=== PATIENT | female | born 1965 | race Caucasian/White ===

== ENCOUNTER 2017-11-17 05:59 | Day surgery (SDC) | payer OTHER ==
[2017-11-17] MEDS ORDERED: FENTAnyl 50 MCG/ML VIAL (07:33)
[2017-11-17] MEDS ORDERED: MIDAZOLAM 1 MG/ML 2 ML INJ (07:33)
[2017-11-17] MEDS ORDERED: PROPOFOL 20 ML (07:33)
== END 2017-11-17 10:30 | disposition home or self-care (01) ==
LOC: GIL 05:59
DX: Z12.11 Encounter for screening for malignant neoplasm of colon (principal); K29.50 Unspecified chronic gastritis without bleeding; K20.9 Esophagitis, unspecified; K64.4 Residual hemorrhoidal skin tags; K64.8 Other hemorrhoids; K57.90 Diverticulosis of intestine, part unspecified, without perforation or abscess without bleeding; F17.200 Nicotine dependence, unspecified, uncomplicated
CPT/HCPCS: 43239; 88305; 88312

== ENCOUNTER 2018-12-07 05:24 | Inpatient (IN) | payer OTHER ==
[2018-12-07] MEDS ORDERED: CEFAZOLIN 2 GM/50 ML (PMX) 50 ML IVPB (05:30)
[2018-12-07] MEDS: LACTATED RINGER'S 1,000 ML IV ×4 (06:55→22:03)
[2018-12-07] MEDS ORDERED: morphine SULFATE/PF (10 MG/10 ML) INJ (07:44)
[2018-12-07] MEDS ORDERED: MIDAZOLAM 1 MG/ML 2 ML INJ (07:47)
[2018-12-07] MEDS ORDERED: METOCLOPRAMIDE 10 MG INJ IV (08:00)
[2018-12-07] MEDS ORDERED: FENTAnyl 50 MCG/ML VIAL IV ×2 (08:00)
[2018-12-07] MEDS ORDERED: DIPHENHYDRAMINE 50 MG INJ IV (08:00)
[2018-12-07] MEDS ORDERED: HYDROmorphONE 1 MG/5 ML IV SYRINGE IV ×2 (08:00)
[2018-12-07] MEDS ORDERED: MEPERIDINE 25 MG INJ IV (08:00)
[2018-12-07] MEDS ORDERED: ALBUTEROL 0.083% (NEB) 2.5 MG/3 ML AMP HHN (08:00)
[2018-12-07] MEDS: BUPIVACAINE 0.25%/EPI (SDV) 30 ML INJ INJ (08:15)
[2018-12-07] MEDS ORDERED: BUPIVACAINE 0.25%/EPI (SDV) 30 ML INJ (08:26)
[2018-12-07] MEDS ORDERED: SUCCINYLCHOLINE CHLORIDE 100 MG/5 ML SYG IV (09:36)
[2018-12-07] MEDS ORDERED: SUGAMMADEX SODIUM 200 MG/2 ML VIAL IV (09:36)
[2018-12-07] MEDS ORDERED: PROPOFOL 20 ML (09:36)
[2018-12-07] MEDS ORDERED: ROCURONIUM 50 MG INJ (09:36)
[2018-12-07] MEDS ORDERED: LIDOCAINE 100 MG SYRINGE (09:36)
[2018-12-07] MEDS ORDERED: CEFAZOLIN 1 GM INJ (09:36)
[2018-12-07] MEDS ORDERED: ZOLPIDEM 5 MG TAB PO (10:00)
[2018-12-07] MEDS ORDERED: DIPHENHYDRAMINE 50 MG CAP PO (10:00)
[2018-12-07] MEDS ORDERED: ONDANSETRON INJ 6 MG in DEXTROSE 5% 50 ML IVPB (10:00)
[2018-12-07] MEDS ORDERED: HYDROCODONE/APAP (5/325) TAB PO (10:00)
[2018-12-07] MEDS: KETOROLAC 30 MG INJ IV ×2 (10:47→18:36)
[2018-12-07] MEDS: ONDANSETRON 4 MG INJ IV (10:48)
[2018-12-07] MEDS: HYDROmorphONE 1 MG/5 ML IV SYRINGE IV (10:49)
[2018-12-07] MEDS: FENTAnyl 50 MCG/ML VIAL IV (10:58)
[2018-12-07] MEDS: METOCLOPRAMIDE 10 MG TAB PO ×2 (13:40→18:37)
[2018-12-07] MEDS: CEFAZOLIN 1 GM/50 ML (PMX) 50 ML IVPB ×2 (16:32→22:09)
[2018-12-08] MEDS: METOCLOPRAMIDE 10 MG TAB PO ×4 (00:04→17:35)
[2018-12-08] MEDS: KETOROLAC 30 MG INJ IV ×2 (00:05→06:14)
[2018-12-08 05:45] LABS: ADD MAN DIFF? NO
[2018-12-08 05:51] LABS: WHITE BLOOD COUNT 9.9 10^3/ul (4.8-10.8)
[2018-12-08 05:51] LABS: BASOPHILS % 0.3 % (0.0-2.0); EOSINOPHILS # 0.2 10^3/ul (0.0-0.5); EOSINOPHILS % 1.6 % (0.0-7.0); HEMATOCRIT 32.7 % (37.0-47.0); HEMOGLOBIN 11.3 g/dl (12.0-16.0); LYMPHOCYTES # 3.8 10^3/ul (0.8-2.9); LYMPHOCYTES % 38.2 % (15.0-51.0); MEAN CORPUSCULAR HEMOGLOBIN 31.5 pg (29.0-33.0); MEAN CORPUSCULAR HGB CONC 34.6 g/dl (32.0-37.0); MEAN CORPUSCULAR VOLUME 91.1 fl (82.0-101.0); MEAN PLATELET VOLUME 9.7 fl (7.4-10.4); MONOCYTE # 0.8 10^3/ul (0.3-0.9); MONOCYTES % 7.6 % (0.0-11.0); NEUTROPHIL # 5.2 10^3/ul (1.6-7.5); NEUTROPHILS % 52.1 % (39.0-77.0); PLATELET COUNT 246 10^3/UL (140-415); RED BLOOD COUNT 3.59 10^6/ul (4.20-5.40); RED CELL DISTRIBUTION WIDTH 13.2 % (11.5-14.5)
[2018-12-08] MEDS: CEFAZOLIN 1 GM/50 ML (PMX) 50 ML IVPB (06:14)
[2018-12-08 06:16] LABS: ANION GAP 4 (5-13); BLOOD UREA NITROGEN 10 mg/dl (7-20); CARBON DIOXIDE 29 mmol/L (21-31); CHLORIDE 106 mmol/L (97-110); CREATININE 0.63 mg/dl (0.44-1.00); POTASSIUM 3.9 mmol/L (3.5-5.1); SODIUM 139 mmol/L (135-144)
[2018-12-08] MEDS: LACTATED RINGER'S 1,000 ML IV ×2 (06:30→09:40)
[2018-12-08] MEDS: IBUPROFEN 800 MG TAB GTB ×2 (13:35→21:35)
[2018-12-08] MEDS: HYDROCODONE/APAP (5/325) TAB PO (17:34)
[2018-12-09] MEDS: METOCLOPRAMIDE 10 MG TAB PO ×3 (00:43→12:43)
[2018-12-09] MEDS: IBUPROFEN 800 MG TAB GTB ×2 (06:00→14:12)
== END 2018-12-09 15:56 | disposition home or self-care (01) | DRG 743 ==
LOC: REC 05:24 → 2NE 11:00
PROC: 0UT97ZZ Resection of Uterus, Via Natural or Artificial Opening (ICD-10-PCS; principal; 2018-12-07 07:30)
PROC: 0UTC7ZZ Resection of Cervix, Via Natural or Artificial Opening (ICD-10-PCS; 2018-12-07 07:30)
DX: N87.9 Dysplasia of cervix uteri, unspecified (principal); M81.0 Age-related osteoporosis without current pathological fracture; F17.200 Nicotine dependence, unspecified, uncomplicated; D25.9 Leiomyoma of uterus, unspecified
CPT/HCPCS: 80051; 82565; 84520; 85025; 86850; 86900; 86901; 86920; 87086; 88307; 93005